=== PATIENT | male | born 1995 | race Caucasian/White ===

== ENCOUNTER 2017-01-01 08:21 | Emergency (ER) | payer BC, OTHER ==
[~2017-01-01] VITALS: Wt 80.0 kg
--- NOTE | 2017-01-01 10:14 | RADRPT ---
PROCEDURE: Right knee series. CLINICAL INDICATION: Right knee pain after trauma TECHNIQUE: Three views of the right knee are available for review. COMPARISON: None available FINDINGS: The tunnel view is limited by motion artifact. There is normal mineralization and alignment of the bones of the right knee. 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 No acute fracture or dislocat ion is identified. No joint effusion is seen. Overlying soft tissues are unremarkable. IMPRESSION: 1. No evidence of acute fracture or dislocation. RPTAT: KK .Quincy Barnett MD, MD Date Time Electronically viewed and signed by .Quincy Barnett MD, MD on 01/01/2017 10:14 .B/
[2017-01-01] MEDS ORDERED: NAPR-260 PO (10:22)
--- NOTE | 2017-01-01 11:06 | ERD ---
ER Documentation Chief Complaint Date/Time DATE: 01/01/17 TIME: 11:04 Chief Complaint R KNEE PAIN AFTER PLAYING SOCCER. NO SWELLING . NO DEFORMITY HPI 21-year-old male complains of right lateral anterior knee pain after playing soccer yesterday. Patient states that he twisted medially, another player and actually pushes any, and complains of localized pain to that area. His pain is worse whenever he stands on it, better when he is resting position, there is no radiation of pain, or weakness associated. ROS All systems reviewed and are negative except as per history of present illness. Medications Home Meds Active Scripts Naproxen* (Naprosyn*) 500 Mg Tablet, 500 MG PO BID Y for PAIN AND/OR INFLAMMATION, #30 TAB Prov:TOYA SURESH PA-C 01/01/17 Allergies Allergies: Coded Allergies: No Known Allergy (Unverified , 01/01/17) PMhx/Soc Medical and Surgical Hx: pt denies Medical Hx, pt denies Surgical Hx Hx Alcohol Use: Yes (OCASSIONAL) Hx Substance Use: No Hx Tobacco Use: No Smoking Status: Never smoker Physical Exam Vitals Vital Signs Date Time Temp Pulse Resp B/P Pulse Ox O2 Delivery O2 Flow Rate FiO2 01/01/17 08:44 98.5 91 21 150/74 98 Physical Exam General: Well-developed, well-nourished. The patient appears in no acute distress. HEENT: Head is normocephalic, atraumatic. No scleral icterus. Neck: Supple. Nontender. Lungs: Clear to auscultation. Normal air movement. Heart: Regular rate and rhythm. S1 and S2 are normal. No murmurs, gallops, or rubs. Abdomen: Nondistended. Lower Extremity - bilateral: Skin: No laceration Compartments: Soft Motor: Full active range of motion hip/knee/ankle/foot Sensation: Intact to light touch FDWS/MF/LF/P surfaces. Bones: Nontender pelvis/knee/proximal tibia/ malleoli/foot Joints: No effusion or laxity Pulses/Perfusion: 2+ DP, Capillary refill < 2 seconds Right knee shows valgus stress test positive. There is no joint laxity. No joint line tenderness. He is able to straight leg raise, and has full range of motion flexion. Neurologic: Alert and oriented 3. No focal deficits. Normal speech and gait. Skin: Normal turgor. No rash or lesions. Results 24 hrs PROCEDURE: Right knee series. CLINICAL INDICATION: Right knee pain after trauma TECHNIQUE: Three views of the right knee are available for review. COMPARISON: None available FINDINGS: The tunnel view is limited by motion artifact. There is normal mineralization and alignment of the bones of the right knee. 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 No acute fracture or dislocation is identified. No joint effusion is seen. Overlying soft tissues are unremarkable. IMPRESSION: 1. No evidence of acute fracture or dislocation. RPTAT: KK .Quincy Barnett MD, Date Time Electronically viewed and signed by .Quincy Barnett MD, on 2016 10:14 .B/ CC: TOYA SURESH PA-C Procedures/MDM ED course: Patient's right knee was placed in a knee immobilizer. He is to be weightbearing as tolerated. MDM: 21-year-old male comes in with right anterior knee pain on the lateral aspect. X-rays do not show any evidence of fracture, a suspicion for tibial plateau fracture is low. Clinically there are no signs of DVT, osteomyelitis or septic joint. He has been asked to take anti-inflammatories at home and if no improvement noted after a week that he may seek secondary evaluation with orthopedics. Patient did request an MRI of the knee at this time, I explained that if there were any suspicion for any tendon injury that we would order one however he does have full range of motion. Ligamental or meniscal injury may be reevaluated after a week, explained that these injuries are not emergent, and that he may follow-up with his primary care doctor orthopedics to see if he does need any advanced imaging at that time. Departure Diagnosis: Primary Impression: Knee injury Condition: Good Patient Instructions: Knee Sprain Referrals: KINGS FLEMING MD Additional Instructions: If symptoms do not improve after 1-2 weeks, follow up with orthopedics. SPECIALIST: PLEASE FOLLOW UP WITH YOUR PRIMARY PHYSICIAN FOR REFFERAL.IF YOU DO NOT HAVE A PRIMARY CARE PHYSICIAN AND/OR YOU CAN NOT AFFORD TO SEE A PHYSICIAN THE FOLLOWING RESOURCES HAVE BEEN SUPPLIED TO YOU. IT IS YOUR RESPONSIBILITY TO BE SEEN BY THE SPECIALIST TOYA SURESH PA-C Jan 01, 2017 11:06
== END 2017-01-01 10:44 | disposition home or self-care (01) ==
LOC: FTE 08:21
DX: S89.91XA Unspecified injury of right lower leg, initial encounter (principal); X50.1XXA Overexertion from prolonged static or awkward postures, initial encounter; Y92.9 Unspecified place or not applicable
CPT/HCPCS: 29505; 73562; Z7502